=== PATIENT | female | born 1950 | race Caucasian/White ===

== ENCOUNTER 2021-01-26 06:43 | Day surgery (SDC) | payer MEDICARE, BC ==
[~2021-01-26] VITALS: Ht 157.5 cm; Wt 71.2 kg
[~2021-01-26 06:43] MED LIST: ATIVAN1 MG PO; CARAFATE1 G PO; COREG25 MG PO; COZAAR50 MG PO; FLECAINIDE ACE100 MG PO; MELOXICAM TAB 15M PO; PROZAC20 MG PO; SYNTHROID25 MCG PO; TENORMIN50 MG PO; ULTRAM50 MG PO; VALACYCLOVIR PO; ZETIA10 MG PO; ZOFRAN4 MG PO; ZOVIRAX 5% CREAM5 GM TOPICAL
[2021-01-26 07:42] VITALS: Ht 157.5 cm; Wt 71.2 kg
[2021-01-26] MEDS ORDERED: HYDROCODON-ACE1 EAC7 PO (10:31)
[2021-01-26] MEDS ORDERED: ULTRAM50 MG PO (11:40)
--- NOTE | 2021-01-26 12:31 | NUR ---
ALL DISCHARGE INSTRUCTIONS GIVEN. FOLLOW UP APPOINTMENT GIVEN. PAIN SCRIPT GIVEN. DRESSED AT BEDSIDE. VOICES NO OTHER NEEDS. TAKEN DOWN VIA W/C TO CAR WITH FAMILY. ADVISED TO CALL OR COME BACK IF ANY PROBLEMS.
== END 2021-01-26 12:32 | disposition home or self-care (01) ==
LOC: D.OPS 06:43
PROVIDERS: ATTEND Surgery
DX: K82.8 Other specified diseases of gallbladder (principal); Z86.19 Personal history of other infectious and parasitic diseases; E66.9 Obesity, unspecified; Z88.9 Allergy status to unspecified drugs, medicaments and biological substances; I10 Essential (primary) hypertension